=== PATIENT | female | born 1965 | race Caucasian/White ===

== ENCOUNTER 2021-11-26 14:09 | Emergency (ER) | payer MEDICAID ==
[~2021-11-26 14:09] MED LIST: OTC PAIN MEDS
== END 2021-11-26 15:01 | disposition left against medical advice (07) ==
LOC: EMS 14:09
DX: R73.9 Hyperglycemia, unspecified (principal); Z53.21 Procedure and treatment not carried out due to patient leaving prior to being seen by health care provider